=== PATIENT | male | born 1945 | race Caucasian/White ===

== ENCOUNTER 2017-12-31 23:08 | Inpatient (IN) | END 2018-01-04 16:30 | disposition home health service (06) | DRG 682 ==

== ENCOUNTER 2018-02-22 19:24 | Inpatient (IN) | END 2018-02-26 14:30 | disposition home or self-care (01) | DRG 371 ==

== ENCOUNTER 2018-05-01 15:22 | Inpatient (IN) | END 2018-05-06 17:01 | disposition home or self-care (01) | DRG 377 ==

== ENCOUNTER 2018-05-07 22:18 | Inpatient (IN) | END 2018-05-13 18:53 | DRG 377 ==